=== PATIENT | male | born 1960 | race American Indian/Alaskan Native ===

== ENCOUNTER 2017-04-06 02:42 | Emergency (ER) | payer OTHER ==
[2017-04-06] MEDS ORDERED: BOOSTRIX IM ONE (03:19)
[2017-04-06 03:23] LABS: Basophils % (Auto) 0.4 % (0.0-1.8); Hematocrit 40.2 % (35.5-45.6); Mean Corpuscular HGB Conc 32 % (32-34); Mean Corpuscular Hemoglobin 26 pg (28-32); Mean Corpuscular Volume 81 fl (84-94); Platelet Count 213 K/mm3 (140-440); Red Blood Count 4.98 M/mm3 (3.65-5.03); Red Cell Distribution Width 14.1 % (13.2-15.2); White Blood Count 8.6 K/mm3 (4.5-11.0)
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
[2017-04-06 03:33] LABS: INR 1.06 (0.87-1.13)
[2017-04-06 03:34] LABS: Partial Thromboplastin Time 24.7 Sec. (24.2-36.6)
[2017-04-06] MEDS ORDERED: NACL ONE (03:35)
[2017-04-06 03:38] LABS: Alanine Aminotransferase 11 units/L (7-56); Albumin 4.7 g/dL (3.9-5); Albumin/Globulin Ratio 1.7 %; Alkaline Phosphatase 47 units/L (35-129); Anion Gap 23 mmol/L; BUN/Creatinine Ratio 11.66; Blood Urea Nitrogen 14 mg/dL (9-20); Calcium 9.3 mg/dL (8.4-10.2); Carbon Dioxide 20 mmol/L (22-30); Chloride 102.7 mmol/L (98-107); Glucose 121 mg/dL (75-100); Potassium 3.3 mmol/L (3.6-5.0); Sodium 142 mmol/L (137-145); Total Protein 7.5 g/dL (6.3-8.2)
[2017-04-06] MEDS ORDERED: SUBLIMAZE IV ONE (04:12)
[2017-04-06] MEDS ORDERED: ZOFRAN IV ONE (04:12)
[2017-04-06] MEDS ORDERED: THERMAZENE 50 GRAM TP ONE (05:31)
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
[2017-04-06 07:54] VITALS: BP 154/74
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
--- NOTE | 2017-04-06 09:58 | XRay Report ---
RIGHT TIBIA AND FIBULA, 2 VIEWS History: Right leg pain. Findings: There is nonspecific medial soft tissue swelling. No acute osseous injury or joint pathology is detected. Impression: Soft tissue injury.
== END 2017-04-06 09:05 | disposition home or self-care (01) ==
LOC: ED 02:42
DX: Y99.8 Other external cause status (principal); S40.812A Abrasion of left upper arm, initial encounter; S40.811A Abrasion of right upper arm, initial encounter; V89.2XXA Person injured in unspecified motor-vehicle accident, traffic, initial encounter; Y93.9 Activity, unspecified; Y92.9 Unspecified place or not applicable; S30.1XXA Contusion of abdominal wall, initial encounter; I10 Essential (primary) hypertension
CPT/HCPCS: 36415; 70450; 71275; 72125; 73060; 73090; 73590; 74177; 80053; 85025; 85610; 85730; 86850; 86900; 86901; 90471; 90715; 96374; 96375; 99284; G0480; J2405; J3010; Q9967; 80320

== ENCOUNTER 2017-04-12 18:28 | Emergency (ER) | payer OTHER ==
[2017-04-12] MEDS ORDERED: PEPCID IV ONE (19:20)
[2017-04-12] MEDS ORDERED: DELTASONE PO ONE (19:20)
[2017-04-12] MEDS ORDERED: BENADRYL IV ONE (19:20)
[2017-04-12] MEDS ORDERED: BENADRYL PO ONE (19:41)
[2017-04-12] MEDS ORDERED: PEPCID PO ONE (19:41)
[2017-04-12 19:54] LABS: Basophils % (Auto) 0.6 % (0.0-1.8); Eosinophils % (Auto) 2.4 % (0.0-4.3); Hematocrit 35.2 % (35.5-45.6); Hemoglobin 11.3 gm/dl (11.8-15.2); Mean Corpuscular HGB Conc 32 % (32-34); Mean Corpuscular Hemoglobin 26 pg (28-32); Mean Corpuscular Volume 82 fl (84-94); Platelet Count 270 K/mm3 (140-440); Red Cell Distribution Width 14.3 % (13.2-15.2); White Blood Count 5.6 K/mm3 (4.5-11.0)
[2017-04-12 20:29] LABS: Alanine Aminotransferase 33 units/L (7-56); Albumin 3.5 g/dL (3.9-5); Albumin/Globulin Ratio 1.3 %; Alkaline Phosphatase 54 units/L (35-129); Anion Gap 17 mmol/L; BUN/Creatinine Ratio 9.09; Blood Urea Nitrogen 10 mg/dL (9-20); Calcium 8.7 mg/dL (8.4-10.2); Carbon Dioxide 26 mmol/L (22-30); Glucose 91 mg/dL (75-100); Potassium 3.8 mmol/L (3.6-5.0); Sodium 138 mmol/L (137-145); Total Protein 6.3 g/dL (6.3-8.2)
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
[2017-04-12 22:44] VITALS: BP 184/92
== END 2017-04-12 22:20 | disposition home or self-care (01) ==
LOC: ED 18:28
DX: T78.3XXA Angioneurotic edema, initial encounter (principal); I10 Essential (primary) hypertension; F17.210 Nicotine dependence, cigarettes, uncomplicated
CPT/HCPCS: 36415; 36569; 80053; 85025; 99283; J7512

== ENCOUNTER 2017-07-24 10:07 | Outpatient (CLI) | payer OTHER ==
--- NOTE | 2017-07-24 10:53 | XRay Report ---
CHEST 2 VIEWS INDICATION: Annual physical exam. COMPARISON: None similar. FINDINGS: PA and lateral chest radiographs demonstrate normal cardiomediastinal silhouette. Clear lungs. Slight mid thoracic spine degenerative spurring. CONCLUSION: No acute disease in the chest. Thank you for the opportunity to participate in this patient's care.
== END 2017-07-24 10:08 | disposition home or self-care (01) ==
LOC: SPVIMAG 10:07
PROVIDERS: ATTEND Internal Medicine
DX: Z00.00 Encounter for general adult medical examination without abnormal findings (principal); M53.84 Other specified dorsopathies, thoracic region
CPT/HCPCS: 71020